=== PATIENT | male | born 1985 | race Caucasian/White ===

== ENCOUNTER 2016-10-08 09:15 | Emergency (ER) | payer OTHER ==
[2016-10-08 09:34] VITALS: RESP 18; TEMP 98.3
[2016-10-08] MEDS ORDERED: SODIUM CHLORIDE 0.9% 1,000 ML IV ONE (09:40)
[2016-10-08] MEDS ORDERED: ONDANSETRON 4 MG/2 ML VIAL IVP STA (09:40)
--- NOTE | 2016-10-08 09:45 | ED ---
Psych HPI - General Chief Complaint: Psychiatric Symptoms Stated Complaint: Mental Health Time Seen by Provider: 10/08/16 09:18 Source: patient, EMS, RN notes reviewed Mode of arrival: EMS Limitations: no limitations - History of Present Illness Initial Comments: 31-year-old male presents emergency Department from [place] for hallucinations. Patient states that he started having hallucinations last night. Patient states that he is having visual and auditory hallucinations. Patient states that he seen characters, they are talking or babbling to each other. Patient states that he is L call free for 5 days. Patient states he is drinking 2/5 a day for many years. Patient states he started drinking alcohol approximately age 12. Patient states that they've been given him Zofran for the nausea which helps minimally. Patient states that he also started trazodone 2 nights ago states this is on the symptoms seemed to start. Patient states he is also on Keppra for seizure precautions. Patient denies any suicidal or homicidal thoughts. - Related Data Allergies Allergy/AdvReac Type Severity Reaction Status Date / Time No Known Allergies Allergy Verified 10/08/16 11:41 Review of Systems ROS Statement: Those systems with pertinent positive or pertinent negative responses have been documented in the HPI. ROS Other: All systems not noted in ROS Statement are negative. Past Medical History Past Medical History: Seizure Disorder Additional Past Medical History / Comment(s): etoh abuse History of Any Multi-Drug Resistant Organisms: None Reported Past Surgical History: No Surgical Hx Reported Past Psychological History: No Psychological Hx Reported Smoking Status: Current every day smoker Past Alcohol Use History: Abuse Past Drug Use History: None Reported General Exam Limitations: no limitations General appearance: alert, in no apparent distress Head exam: Present: atraumatic, normocephalic. Absent: normal inspection (Scar noted to forehead region, frontal aspect) Eye exam: Present: normal appearance, PERRL, EOMI. Absent: scleral icterus, conjunctival injection, periorbital swelling ENT exam: Present: normal exam, normal oropharynx, mucous membranes moist, TM's normal bilaterally, normal external ear exam Neck exam: Present: normal inspection, full ROM. Absent: tenderness, meningismus, lymphadenopathy Respiratory exam: Present: normal lung sounds bilaterally. Absent: respiratory distress, wheezes, rales, rhonchi, stridor Cardiovascular Exam: Present: regular rate, normal rhythm, normal heart sounds. Absent: systolic murmur, diastolic murmur, rubs, gallop, clicks GI/Abdominal exam: Present: soft, normal bowel sounds. Absent: distended, tenderness, guarding, rebound, rigid Neurological exam: Present: alert, oriented X3, CN II-XII intact Psychiatric exam: Present: normal affect, normal mood. Absent: homicidal ideation, suicidal ideation Skin exam: Present: warm, dry, intact, normal color. Absent: rash Course Vital Signs 10/08/16 09:29 Temperature 98.3 F Pulse Rate 90 Respiratory 18 Rate Blood Pressure 123/81 O2 Sat by Pulse 95 Oximetry Medical Decision Making - Medical Decision Making 31-year-old male sent from [place] here for evaluation of hallucinations. Patient has stated that his hallucinations have stopped. He states it probably started only one taking trazodone. Patient will discontinue trazodone at [place]. Patient does have some thrombocytopenia related to his alcohol abuse. Patient's elevated liver enzymes are most likely related to his alcohol use. Patient states he feels much improved after IV fluids, Zofran. He has tolerated a sandwich, juice in the emergency department. - Lab Data Result diagrams: 10/08/16 10:18 10/08/16 10:18 Lab Results 10/08/16 10/08/16 Range/Units 10:18 10:18 WBC 4.0 (3.8-10.6) k/uL RBC 4.56 (4.30-5.90) m/uL Hgb 15.4 (13.0-17.5) gm/dL Hct 46.2 (39.0-53.0) % MCV 101.3 H (80.0-100.0) fL MCH 33.8 (25.0-35.0) pg MCHC 33.4 (31.0-37.0) g/dL RDW 12.1 (11.5-15.5) % Plt Count 39 L* (150-450) k/uL Neutrophils % (Manual) 84.2 % Lymphocytes % (Manual) 9.9 % Monocytes % (Manual) 5.9 % Neutrophils # (Manual) 3.4 (1.3-7.7) k/uL Lymphocytes # (Manual) 0.4 L (1.0-4.8) k/uL Monocytes # (Manual) 0.2 (0-1.0) k/uL Nucleated RBCs 0 (0-0) /100 WBC Poikilocytosis (manual Present Anisocytosis (manual) Present Sodium 131 L (137-145) mmol/L Potassium 3.8 (3.5-5.1) mmol/L Chloride 88 L (98-107) mmol/L Carbon Dioxide 24 (22-30) mmol/L Anion Gap 19 mmol/L BUN 11 (9-20) mg/dL Creatinine 0.80 (0.66-1.25) mg/dL Est GFR (MDRD) Af Amer >60 (>60 ml/min/1.73 sqM) Est GFR (MDRD) Non-Af >60 (>60 ml/min/1.73 sqM) Glucose 71 L (74-99) mg/dL Calcium 10.5 H (8.4-10.2) mg/dL Total Bilirubin 1.2 (0.2-1.3) mg/dL AST 140 H (17-59) U/L ALT 148 H (21-72) U/L Alkaline Phosphatase 72 (38-126) U/L Total Protein 7.8 (6.3-8.2) g/dL Albumin 4.7 (3.5-5.0) g/dL Disposition Clinical Impression: Hallucinations, Thrombocytopenia concurrent with and due to alcoholism, Alcoholic hepatitis Disposition: HOME SELF-CARE Condition: Stable Instructions: Alcohol Withdrawal (ED) Additional Instructions: Please return to the Emergency Department if symptoms worsen or any other concerns. Time of Disposition: 11:51
[2016-10-08 10:35] LABS: CHCM 34.6; HCT 46.2 % (39.0-53.0); HDW 2.46; HGB 15.4 gm/dL (13.0-17.5); MCH 33.8 pg (25.0-35.0); MCHC 33.4 g/dL (31.0-37.0); MCV 101.3 fL (80.0-100.0); Mean Platelet Volume 8.3; RBC 4.56 m/uL (4.30-5.90); RDW 12.1 % (11.5-15.5); WBC (Perox) 4.37
[2016-10-08 10:40] LABS: ALT 148 U/L (21-72); AST 140 U/L (17-59); Alkaline Phosphatase 72 U/L (38-126); Anion Gap 19 mmol/L; Blood Urea Nitrogen 11 mg/dL (9-20); Calcium 10.5 mg/dL (8.4-10.2); Carbon Dioxide 24 mmol/L (22-30); Chloride 88 mmol/L (98-107); Glucose 71 mg/dL (74-99); Non-African American GFR(MDRD) >60 (>60 ml/min/1.73 sqM); Potassium 3.8 mmol/L (3.5-5.1); Sodium 131 mmol/L (137-145); Total Bilirubin 1.2 mg/dL (0.2-1.3); Total Protein 7.8 g/dL (6.3-8.2)
[2016-10-08 11:39] LABS: Add Differential Manual Differential
[2016-10-08 11:40] LABS: Nucleated Red Blood Cells 0 /100 WBC (0-0); Total Cells Counted 101
[2016-10-08 12:30] VITALS: BP 157/90; PULSE 98
== END 2016-10-08 12:51 | disposition home or self-care (01) ==
LOC: EC 09:15
DX: R44.0 Auditory hallucinations (principal); R44.1 Visual hallucinations; D69.6 Thrombocytopenia, unspecified; K70.10 Alcoholic hepatitis without ascites; F10.239 Alcohol dependence with withdrawal, unspecified; F17.200 Nicotine dependence, unspecified, uncomplicated
CPT/HCPCS: 36415; 80053; 80177; 85025; 99285; 96374; 96361; J2405